=== PATIENT | female | born 2000 ===

== ENCOUNTER 2023-06-05 11:06 | Emergency (ER) | payer MEDICARE, SELFPAY ==
[2023-06-05 11:14] VITALS: BP 125/79; PULSE 76; RESP 16; TEMP 36.6; O2SAT 99; BMI 21.9
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
[2023-06-05] MEDS: Fluorescein Sodium STRIP 1 STRIP EYE-LEFT (11:30)
[2023-06-05] MEDS: Tetracaine HCl/PF 0.5% Oph Sol 4 ML DROPS 1 DROP EYE-LEFT (11:30)
== END 2023-06-05 12:02 | disposition home or self-care (01) ==
PROVIDERS: Emergency Provider Emergency Medicine
DX: S05.02XA Injury of conjunctiva and corneal abrasion without foreign body, left eye, initial encounter (principal); Y93.89 Activity, other specified; Y92.810 Car as the place of occurrence of the external cause; Y99.9 Unspecified external cause status
CPT/HCPCS: 99282; 99283